=== PATIENT | female | born 1960 | race Caucasian/White ===

== ENCOUNTER → 2016-10-12 | Outpatient (CLI) | payer MEDICARE, BC ==
[~2016-10-12] MED LIST: AMITRIPTYLINE150 MG PO; CELEBREX PO; CYMBALTA PO; HYDROCODON-ACE1 EAC4 PO; K-DUR20 ME1 PO; LANOXIN PO; LASIX PO; LEVOTHYROXINE75 MCG PO; LOPID600 MG PO; METFORMIN HCL500 M1 PO; NEURONTIN PO; PROTONIX PO; RYTHMOL150 MG PO; SEROQUEL PO; SIMVASTATIN40 MG PO; SOTALOL120 MG PO; VESICARE PO; WARFARIN SODIUM3 MG PO
--- NOTE | ~2016-10-12 | XA77 ---
[facility] A Service of [facility] & [facility] RADIOLOGY TEXT RESULTS PATIENT: WANDA BEST LOCATION: CIVR : 56 UNIT #: [id number] AGE: [address]: Jayme Merritt II, MD SEX: F ORDER DR: [id number] [facility] [address] [place], [place] [address] [id number] O MR#: [id number] Acc #: [id number] NAME: WANDA BEST : 1960 SEX: F STUDY DATE/TIME: 10/12/2016 8:29 UNIT: [facility] EASTR ROOM: STUDY DESCRIPTION: XA CVC Port Devive Check Attending Physician: Jayme Merritt II., M.D. Ordering Physician: Jayme Merritt II., M.D. Primary Care Physician: Leonard Wild M.D. MEDICAL IMAGING REPORT This report is preliminary unless electronic signature is present EXAM MediPort check INDICATION This is a 56-year-old patient who has a right internal jugular vein MediPort. This was placed 08/29/2016. Patient reports there has been some difficulty with access of the port and some mild pain at the port site. FINDINGS There risks, benefits and alternatives to the procedure were explained to the patient, and signed, informed consent was obtained. Port was accessed by the IVR nurse. The port flushed and aspirated easily upon access. An initial image was obtained which showed a right internal jugular vein MediPort terminating within the superior vena cava. I did perform a catheter gram through the MediPort which showed no evidence of fibrin sheath or contrast extravasation. Total fluoroscopy time was 0.6 minutes. AK was 6 mGy. IMPRESSION No abnormality of the patient's right jugular vein MediPort is seen. It flushes and aspirates easily and there is no evidence of fibrin sheath or catheter fragmentation. Fluoroscopy was used during this procedure and permanent images were saved. Dictated by... Zeenat Diaz M.D. THIS IS AN ELECTRONICALLY VERIFIED REPORT Zeenat Diaz M.D. at 10/13/2016 5:14 PM AFF/jw TD: 10/13/2016 10:46 [facility]. [facility] A Service of [facility] RADIOLOGY TEXT RESULTS PATIENT: WANDA BEST LOCATION: [facility] : 56 UNIT #: [id number] AGE: [address]: Jayme Merritt II, MD SEX: F ORDER DR: WENDY #: [id number] MEDICAL IMAGING REPORT Page 1 of 1 COPY
== END | disposition home or self-care (01) ==
LOC: CIVR 08:07
DX: Z45.2 Encounter for adjustment and management of vascular access device (principal); G61.81 Chronic inflammatory demyelinating polyneuritis
CPT/HCPCS: Q9967